=== PATIENT | male | born 1945 | race Caucasian/White ===

== ENCOUNTER 2019-09-13 11:25 | Day surgery (SDC) | payer OTHER, SELFPAY ==
--- NOTE | 2019-09-13 | PATH_ITS ---
[facility] Accession Number: [id number] . 01 Material submitted: . PART A: colon - CECAL POLYP PART B: colon - ASCENDING COLON POLYP PART C: colon - TRANSVERSE COLON POLYP . 02 Diagnosis: A. Cecum, Polyp: Tubular adenoma. . B. Ascending Colon, Polyp: Small serrated lesion, consistent with early sessile adenoma. . C. Transvese Colon, Polyp: Colonic mucosa with no diagnostic abnormality, consistent with polypoid redundancy. Negative for serrated lesion, dysplasia or malignancy. Additional step sections examined. [facility] 09/15/2019 1516 Local . 02 Electronically signed: . Pavan Clemente MD, PhD, Pathologist NPI- [id number] . 01 Gross description: . Part A: CECAL POLYP: Received in formalin are 2 fragment(s) of tolbert, soft tissue measuring 0.2 x 0.2 x 0.2 cm to 0.3 x 0.2 x 0.2 cm submitted entirely in 1 cassette(s) Part B: ASCENDING COLON POLYP: Received in formalin is 1 fragment(s) of tolbert, soft tissue measuring 0.3 x 0.3 x 0.2 cm submitted entirely in 1 cassette(s) Part C: TRANSVERSE COLON POLYP: Received in formalin is 1 fragment(s) of tolbert, soft tissue measuring 0.2 x 0.2 x 0.2 cm submitted entirely in 1 cassette(s) /[facility] [place] 09/13/2019 2230 Local . 02 Pathologist provided ICD-10: D12.0, D12.2, K63.5 . 02 CPT . 820586, 085729, 652690 Performed at: 01 [facility] [address], [place], [place] [id number] MD Ra Lamas MD Phone: [phone] Performed at: 02 [facility] [address] [place] [address] [place], [place] [id number] MD Karissa Mitchell MD Phone: [phone]
--- NOTE | 2019-09-13 09:50 | P.HP_ITS ---
History of Present Illness History of Present Illness Date Patient Seen: 09/13/19 Chief complaint: [id number] Narrative: 74-year-old male who I had seen in my office on 07/18/2019 for esophageal dysphagia and colon cancer screening. Please refer to that note for further details. He is here today for screening colonoscopy Meds Home Medications and Allergies Home Medications Medication Instructions Recorded Confirmed Type lisinopril 10 mg PO Q DAY #0 01/27/12 09/13/19 History vit C,D-Xt-cracz-lutein-zeaxan 1 tab PO BID 09/13/19 09/13/19 History [PreserVision AREDS-2] Allergies Allergy/AdvReac Type Severity Reaction Status Date / Time No Known Drug Allergies Allergy Verified 09/13/19 12:01 Exam Narrative Exam Narrative: General: Patient is obese, not in apparent distress Cardiovascular: Regular rate and rhythm, no murmurs, rubs, or gallops; no ev idence of edema; no palpable abdominal aortic aneurysm Gastrointestinal: Normoactive bowel sounds, soft, nontender, nondistended, no rebound tenderness, no hepatosplenomegaly, no evidence of hernia Assessment & Plan Assessment & Plan narrative: 74-year-old male here for colon cancer screening. He has had family history of colon polyps in his brother Regarding the procedure(s), the risks and potential complications, benefits, and alternatives (including not doing the procedure) were discussed with the patient. The risks include but are not limited to bleeding, splenic injury, infection, perforation which may require surgical intervention, missed lesions, and adverse reactions to sedative medicines. After a question and answer period, the patient agreed to proceed with the procedure(s) and gives informed consent.
[2019-09-13 12:03] VITALS: BP 145/87; PULSE 84; RESP 15; TEMP 36.1; O2SAT 94; BMI 31.1
[2019-09-13] MEDS: SODIUM CHLORIDE 0.9% 1,000 ML 70 ML IV (12:09)
[2019-09-13] MEDS: MIDAZOLAM 5 MG/5 ML VIAL IV (12:41)
[2019-09-13] MEDS: fentaNYL 250 MCG/5 ML INJ IV (12:41)
--- NOTE | 2019-09-13 12:45 | SUR.OPER ---
GLASSES IN LABELED BAG TO PACU WITH PATIENT
--- NOTE | 2019-09-13 12:59 | PM.OP.ENDO ---
Operative Date/Time/Diagnoses Date of procedure: 09/13/19 Procedure Notes Procedure in detail: Surgeon: Ian Arteaga MD Procedure: Colonoscopy with cold forceps polypectomy Preoperative diagnosis: Colon cancer screening, family history colon polyps Postoperative diagnosis: Colon polyps x3 status post polypectomy; diverticulosis; grade 2 internal hemorrhoids Medications: Conscious sedation using 5 mg IV of Midazolam and 100 mcg IV of Fentanyl Preanesthesia Assessment An H and P was performed/updated and the Px?s ASA class is 2. The procedure was discussed in detail with the patient. The potential risks and complications including infection, bleeding, missed lesions, perforation, need for surgery in case of perforation, prolonged hospital stay, and were explained. A brief question and answer period was allotted and once all questions were answered, informed consent was obtained. The patient was brought back to the procedure room and placed on standard monitoring. The patient?s vital signs were monitored continuously throughout the entire procedure. Prior to starting, a timeout was performed to confirm the patient?s identity, allergies, medications, and procedure. Procedure in detail The patient was placed in left lateral decubitus position and once adequate sedation was obtained a NANCY was performed. The digital rectal examination did not reveal any palpable lesions. The tip of the colonoscope was placed in the anal canal and advanced without difficulty all the way to the cecum which was identified by the appendiceal orifice and the ileocecal valve. Careful examination of all bain of the colon was performed with irrigation of any residual stool. In the cecum, there was note of a 2 mm sessile polyp which was removed by means of cold Jumbo forceps. Resection and retrieval was complete with minimal bleeding. In the ascending colon, there was note of a 3 mm sessile polyp which was removed by means of cold Jumbo forceps. Resection and retrieval was complete with minimal bleeding. In the transverse colon, there was note of a 2 mm sessile polyp which was removed by means of cold Jumbo forceps. Resection and retrieval was complete with minimal bleeding. There was note of multiple diverticulosis in the ascending colon and sigmoid colon The patient tolerated the procedure well and will be brought back to the recovery area to be discharged once criteria are met. The prep was judged to be good and adequate to identify polyps less than 5 mm. The withdrawal time was 11 minutes. The total physician intraservice time was 17 minutes. Complications There were no complications and estimated blood loss was minimal. Recommendations: Resume previous diet Continue outPx medications Follow up pathology results Repeat colonoscopy in 3 or 5 years depending on pathology results An emergency contact number was given to the patient for any complications related to the procedure
[2019-09-13 13:05] VITALS: BP 125/73; PULSE 74; RESP 21; TEMP 36.6; O2SAT 98
[2019-09-13 13:09] VITALS: BP 122/74; PULSE 78; RESP 19; TEMP 36.6; O2SAT 99
[2019-09-13 13:14] VITALS: BP 135/67; PULSE 67; RESP 23; TEMP 36.6; O2SAT 96
[2019-09-13 13:20] VITALS: BP 126/70; PULSE 66; RESP 15; TEMP 36.4; O2SAT 96
[2019-09-13 13:53] VITALS: BP 155/82; PULSE 74; RESP 16; TEMP 36.8; O2SAT 96
== END 2019-09-13 13:54 | disposition home or self-care (01) ==
PROVIDERS: Visit Provider Internal Medicine Gastroenterology
PROC: 0DJD8ZZ Inspection of Lower Intestinal Tract, Via Natural or Artificial Opening Endoscopic (ICD-10-PCS; CPT 45378; principal; 2019-09-13 13:00)
DX: Z12.11 Encounter for screening for malignant neoplasm of colon (principal); K57.30 Diverticulosis of large intestine without perforation or abscess without bleeding; K64.1 Second degree hemorrhoids
CPT/HCPCS: 45380; J2250; J3010

== ENCOUNTER 2019-09-20 13:07 | Day surgery (SDC) | payer OTHER, SELFPAY ==
--- NOTE | 2019-09-20 | PATH_ITS ---
[facility] Accession Number: [id number] . 01 Material submitted: . PART A: esophagus - DISTAL ESOPHAGUS PART B: esophagus - DISTAL ESOPHAGUS BIOPSY PART C: esophagus - PROXIMAL ESOPHAGUS BIOPSY . 01 Clinical history: . A: ABNORMAL MUCOSA B-C: RULE OUT EOE . 02 Diagnosis: A. Distal Esophagus, Biopsy: Squamocolumnar junctional mucosa with findings suggestive of foveolar hyperplasia and no significant diagnostic abnormality. Negative for intestinal metaplasia. Negative for dysplasia and malignancy. . B. Distal Esophagus, Biopsy: Squamous mucosa with no diagnostic abnormality. Intraepithelial eosinophils are not increased. Negative for dysplasia and malignancy. . C. Proximal Esophagus, Biopsy: Squamous mucosa with no diagnostic abnormality. Intraepithelial eosinophils are not increased. Negative for dysplasia and malignancy. [facility] 09/22/2019 1124 Local . 02 Electronically signed: . Yancy Medina MD, Pathologist NPI- [id number] . 01 Gross description: . Part A: DISTAL ESOPHAGUS: Received in formalin is 1 fragment(s) of tolbert, soft tissue measuring 0.2 x 0.2 x 0.1 cm submitted entirely in 1 cassette(s) Part B: DISTAL ESOPHAGUS BIOPSY: Received in formalin are 2 fragment(s) of tolbert, soft tissue measuring 0.3 x 0.2 x 0.1 cm to 0.2 x 0.2 x 0.1 cm submitted entirely in 1 cassette(s) Part C: PROXIMAL ESOPHAGUS BIOPSY: Received in formalin are 2 fragment(s) of tolbert, soft tissue measuring 0.3 x 0.3 x 0.1 cm to 0.1 x 0.1 x 0.1 cm submitted entirely in 1 cassette(s) /[facility] 09/21/2019 0758 Local . 02 Pathologist provided ICD-10: R13.14 . 02 CPT . 830736, 934571, 381352 Performed at: 01 [facility] [address] [place] [address], [place], [place] [id number] MD Ra Lamas MD Phone: [phone] Performed at: 02 [facility] [id number] [place], [place] [id number] MD Karissa Mitchell MD Phone: [phone]
[2019-09-20] MEDS: SODIUM CHLORIDE 0.9% 1,000 ML 200 ML IV (14:29)
[2019-09-20 14:30] VITALS: BP 176/80; PULSE 68; RESP 20; TEMP 36.1; O2SAT 92
[2019-09-20 14:31] VITALS: BMI 32.0
--- NOTE | 2019-09-20 15:46 | PM.HP.1 ---
History of Present Illness History of Present Illness Chief complaint: [id number] Patient History Family & Social History Social History: household members none Tobacco & Substance use: Tobacco type cigarettes Smoking Status Former smoker alcohol intake current alcohol intake frequency a few times a week Substance Use Type does not use Meds Home Medications and Allergies Home Medications Medication Instructions Recorded Confirmed Type lisinopril 10 mg PO Q DAY #0 01/27/12 09/20/19 History PreserVision AREDS-2 1 tab PO BID 09/13/19 09/20/19 History Allergies Allergy/AdvReac Type Severity Reaction Status Date / Time No Known Drug Allergies Allergy Verified 09/20/19 14:36 Review of Systems Review of Systems ROS: Yes All systems reviewed with the patient and are negative except as otherwise documented Exam Vital Signs (past 8 hours): - 09/20/19 14:30 Temperature 97 F L Pulse Rate 68 Respiratory Rate 20 Blood Pressure 176/80 H Pulse Oximetry 92 Oxygen Delivery Method Room Air Narrative Exam Narrative: Awake alert and oriented x3, no acute distress, lungs clear to auscultation bilaterally, heart regular rate and rhythm, abdomen nondistended, no lower extremity edema Assessment & Plan Assessment & Plan narrative: Esophageal dysphagia, EGD with possible dilation today
--- NOTE | 2019-09-20 16:01 | PM.OP.ENDO ---
Operative Date/Time/Diagnoses Date of procedure: 09/20/19 Procedure & Clinicians Study performed: EGD with biopsy Moderate conscious sedation was administered by the endoscopy nurse and supervised by the endoscopist. The following parameters were monitored: Oxygen saturation, heart rate, blood pressure, and response to care. 6 mg midazolam 100 mcg fentanyl Indications: Esophageal dysphagia Procedure Notes Procedure in detail: Prior to the procedure, history and physical was performed, and patient medications and allergies were reviewed. Preprocedure nursing history and assessment was reviewed. Patient identification and proposed procedure were verified by the physician and nurse in the procedure room. The physical status of the patient was reassessed after the procedure. After informed consent was obtained including risks, benefits, and alternatives, the scope was passed under direct vision. Throughout the procedure, the patient's blood pressure, pulse, and oxygen saturations were monitored continuously. The upper endoscope was introduced through the mouth and advanced to the 2nd portion of the duodenum. Retroflexion was performed in the stomach. The patient tolerated the procedure well. In the distal esophagus, there was a 2 mm island of salmon-colored mucosa. This was biopsied. The remainder of the esophagus was normal appearing. Biopsies were taken from the proximal and distal esophagus to rule out EOE. The Z-line was regular and was located at 40 cm from the incisors. The entire stomach was normal appearing. The entire examined duodenum was normal appearing. Impression: 2 mm isolated patch of salmon-colored mucosa and the distal esophagus, biopsied Proximal and distal esophageal biopsies taken to rule out EOE. Regular Z-line Normal appearing stomach Normal appearing examined duodenum Sedation minutes: 10 Complications: other (EBL minimal. No complications) Post-procedure Plan for aftercare: Follow-up pathology results Resume previous diet Resume home medications Follow up in GI clinic as previously recommended Discharge home with escort
[2019-09-20 16:05] VITALS: BP 113/65; PULSE 58; RESP 15; TEMP 36.6; O2SAT 92
[2019-09-20] MEDS: MIDAZOLAM 5 MG/5 ML VIAL 6 MG IV (16:05)
[2019-09-20] MEDS: fentaNYL 250 MCG/5 ML INJ IV (16:06)
[2019-09-20 16:10] VITALS: BP 109/66; PULSE 59; RESP 10; O2SAT 94
[2019-09-20 16:15] VITALS: BP 119/72; PULSE 66; RESP 12; TEMP 36.6; O2SAT 95
[2019-09-20 16:20] VITALS: BP 126/70; PULSE 61; RESP 19; TEMP 36.5; O2SAT 92
== END 2019-09-20 16:30 | disposition home or self-care (01) ==
PROVIDERS: Referring Provider Internal Medicine; Visit Provider Internal Medicine
PROC: 0DJ08ZZ Inspection of Upper Intestinal Tract, Via Natural or Artificial Opening Endoscopic (ICD-10-PCS; CPT 43235; principal; 2019-09-20 14:30)
DX: R13.14 Dysphagia, pharyngoesophageal phase (principal)
CPT/HCPCS: 43239; J2250; J3010

== ENCOUNTER 2024-10-19 07:04 | Day surgery (SDC) | payer OTHER, SELFPAY ==
[2024-10-19 07:19] VITALS: BP 189/87; PULSE 89; RESP 18; TEMP 36.7; O2SAT 96
[2024-10-19] MEDS: LACTATED RINGERS 1,000 ML 42 ML IV (07:28)
--- NOTE | 2024-10-19 08:02 | P.HP_ITS ---
History of Present Illness History of Present Illness Date Patient Seen: 10/19/24 Time Patient Seen: 08:03 Chief complaint: Colonoscopy Narrative: Ra is a 79-year-old man who has a history of colon polyps. He had a colonoscopy with Dr. Neves in 2019 and there were 2 small tubular adenomas removed. No family history of colon cancer. [facility] Social History household members: none Smoking Status: Former smoker alcohol intake: current Meds Home Medications and Allergies Home Medications Medication Instructions Recorded Confirmed Type lisinopril 10 mg tablet 10 mg PO Q DAY ##0 01/27/12 10/19/24 History vit C 250 mg-vit E 90 mg-zinc 40 1 tab PO BID 09/13/19 10/19/24 History mg-copper 1 sq-keshha-ymnebp capsule (PreserVision AREDS-2) Allergies Allergy/AdvReac Type Severity Reaction Status Date / Time No Known Drug Allergies Allergy Verified 10/19/24 07:16 Exam Vital Signs (past 8 hours): - 10/19/24 07:19 Temperature 98.1 F Pulse Rate 89 Respiratory Rate 18 Blood Pressure 189/87 H Pulse Oximetry 96 Oxygen Delivery Method Room Air Oxygen Delivery Method Room Air Const General: No acute distress Assessment & Plan Assessment and plan (1) History of colon polyps: Status: Acute Plan Colonoscopy Time-Based Coding :: [TOTAL MINUTES] spent with patient and on the chart (including review of chart, obtaining history, exam, reviewing outside data, placing orders, documenting exam and treatment plan, and counseling patient) on [DATE]. [employer] Document charge(s): No
[2024-10-19 08:31] VITALS: BP 108/61; PULSE 68; RESP 14; TEMP 36.4; O2SAT 96
--- NOTE | 2024-10-19 08:31 | PM.OP.COLON ---
Operative Date/Time/Diagnoses Date of procedure: 10/19/24 Time of procedure: 08:32 Pre-op diagnosis: History of polyps Post-op diagnosis: same Procedure & Clinicians Study performed: Colonoscopy Same procedure as scheduled: Yes Surgeon: Cornell Swartz Procedure Notes Procedure in detail: Surgeon: Cornell Swartz MD Anesthesia: Agustina Mai CRNA Procedure: The patient was brought to the endoscopy suite, placed in left lateral decubitus position. The patient was connected to monitoring devices. A time-out was performed. Sedation was administered. Once the patient was adequately sedated, a digital rectal exam was performed and was normal. The scope was then inserted and advanced to the cecum where the appendiceal orifice was identified and photographed. The scope was then slowly withdrawn over greater than 6 minutes. The mucosa was thoroughly inspected. There was pandiverticulosis. No polyps were found. The scope was retroflexed in the rectum. The scope was straightened and removed. The patient was awakened and brought to recovery. Scope withdrawal time: 10 minutes Sedation time: 15 minutes EBL: 0 Findings: Pandiverticulosis Post-procedure Disposition: PACU
[2024-10-19 08:36] VITALS: BP 116/62; PULSE 89; RESP 14; O2SAT 95
[2024-10-19 08:41] VITALS: BP 121/66; PULSE 64; RESP 12; O2SAT 95
[2024-10-19 08:53] VITALS: BP 115/70; PULSE 78; RESP 16; O2SAT 96
== END 2024-10-19 09:20 | disposition home or self-care (01) ==
PROVIDERS: Referring Provider Surgery; Visit Provider Surgery
PROC: 0DJD8ZZ Inspection of Lower Intestinal Tract, Via Natural or Artificial Opening Endoscopic (ICD-10-PCS; CPT 45378; principal; 2024-10-19 08:15)
DX: Z12.11 Encounter for screening for malignant neoplasm of colon (principal); Z86.0100 Personal history of colon polyps, unspecified; K57.30 Diverticulosis of large intestine without perforation or abscess without bleeding
CPT/HCPCS: 45378; J2704